=== PATIENT | female | born 1970 | race Caucasian/White ===

== ENCOUNTER 2018-11-15 10:01 | Emergency (ER) | payer BC, OTHER ==
[~2018-11-15] VITALS: Ht 160 cm; Wt 98.4 kg
--- OUTSIDE RECORDS SUMMARY | 2018-11-15 10:03 | XMS REPORT | Clinical Summary ---
Author Author [facility] Address Unknown Phone Unavailable Care Team Providers Care Cushion Worker Name Role Phone Asked, No Pcp PCP Unavailable Allergies Comments Active Allergy Reactions Severity Noted Date No Known Drug Allergies 06/26/2016 Medications End Date Status Medication Sig Dispensed Refills Start Date Active buPROPion (WELLBUTRIN) 1 TABLET 0 100 MG tablet every 8 hours 0 Active cetirizine-pseudoepHEDrin 1 TABLET 0 e (ZyrTEC-D) 5-120 mg per TWICE DAILY 0 12 hr tablet NEEDED Active citalopram (CeleXA) 20 MG 1 TABLET 0 tablet DAILY 0 Active esomeprazole (NexIUM) 40 1 capsule 0 MG capsule every 12 0 hours Active phentermine (ADIPEX-P) 1 CAPSULE 0 37.5 MG capsule EVERY MORNING 0 Active phentermine (ADIPEX-P) 1 TABLET 0 37.5 mg tablet EVERY MORNING 0 Active traMADol (ULTRAM) 50 mg 0 tablet 6 Active Problems Problem Noted Date Foot pain, bilateral 06/26/2016 Family History Medical History Relation Name Comments Hypertension Father Relation Name Status Comments Father Social History Date Tobacco Use Types Packs/Day Years Used Former Smoker Comments: 1 PACK PER WEEK Sex Assigned at Date Recorded Not on file Industry Job Start Date Occupation Not on file Not on file Not on file Travel End Travel History Travel Start No recent travel history available. Last Filed Vital Signs Not on file Plan of Treatment Health Maintenance Due Date Last Done Comments CERVICAL CANCER SCREENING 1993 INFLUENZA VACCINE 06/25/2018 Results Not on fileafter 11/14/2017 Insurance Payer Benefit Subscriber ID Type Phone Address Plan / Group BCBS BCBS xxxxxxxxxxxxxxx PPO CHOICE PPO/ANDREA MESSINA PPO Advance Directives Patient has advance care planning documents on file. For more information, fiorella e contact: Santy Floyd [address] [place] [address]
[2018-11-15 10:51] LABS: BASOPHILS % 0.4 % (0.0-1.0); EOSINOPHILS # (AUTO) 0.4 (0.0-0.4); EOSINOPHILS % 4.5 % (0.0-6.0); HEMATOCRIT 43.2 % (34.2-44.1); HEMOGLOBIN 14.4 g/dL (12.0-16.0); LYMPHOCYTES # (AUTO) 1.3 (1.0-3.2); LYMPHOCYTES % 16.1 % (18.0-39.1); MEAN CORPUSCULAR HEMOGLOBIN 30.8 pg (28-32); MEAN CORPUSCULAR HGB CONC 33.3 g/dL (31-35); MEAN CORPUSCULAR VOLUME 92.3 fL (81-99); MONOCYTES # (AUTO) 0.4 (0.2-0.8); NEUTROPHILS % 72.9 % (38.7-80.0); PLATELET COUNT 299 x10e3/uL (140-360); RED BLOOD COUNT 4.68 x10e6/uL (3.6-5.1); RED CELL DISTRIBUTION WIDTH 13.1 % (11.7-14.4)
[2018-11-15] MEDS ORDERED: FAMOTIDINE 20 MG TAB PO ONE (11:00)
[2018-11-15] MEDS ORDERED: LIDOCAINE HCL 1% LOCAL INJ 20 ML VIAL INJ ONE (11:00)
[2018-11-15] MEDS ORDERED: HYDROCODONE/APAP 10MG-325MG TAB PO ONE (11:00)
[2018-11-15 11:13] LABS: ALANINE AMINOTRANSFERASE 147 IU/L (0-55); ALBUMIN 3.8 g/dL (3.5-5.0); ALBUMIN/GLOBULIN RATIO 1.2 (0.8-2.0); ALKALINE PHOSPHATASE 127 IU/L (40-150); ANION GAP 15.1 mmol/L (8-16); BLOOD UREA NITROGEN 10 mg/dL (7-26); BUN/CREATININE RATIO 11 (6-25); CALCIUM 9.2 mg/dL (8.4-10.2); CARBON DIOXIDE 24 mmol/L (22-29); CHLORIDE 105 mmol/L (98-107); EST GLOMERULAR FILTRATION RATE > 60 ML/MIN (60-); GLUCOSE 99 mg/dL (74-118); POTASSIUM 4.1 mmol/L (3.5-5.1); SODIUM 140 mmol/L (136-145)
[2018-11-15] MEDS ORDERED: DIPHENHYDRAMINE HCL 25 MG CAP PO ONE (11:30)
--- NOTE | 2018-11-15 11:56 | Diagnostic Imaging Report ---
FOOT LEFT COMPLETE - 3 views HISTORY: Pain COMPARISON: None available. FINDINGS: Bones: No acute displaced fracture. Osseous alignment is within normal limits. Joints: The joint spaces are well-maintained. Soft tissues: The soft tissues appear unremarkable. Specifically, no soft tissue gas visualized. IMPRESSION: No acute radiographic abnormality. Signed by: Dr. Vazquez Solo MD on 11/15/2018 11:52 AM
== END 2018-11-15 12:21 | disposition home or self-care (01) ==
LOC: ER 10:01
DX: L02.612 Cutaneous abscess of left foot (principal); Z91.013 Allergy to seafood; F17.210 Nicotine dependence, cigarettes, uncomplicated; S90.822A Blister (nonthermal), left foot, initial encounter; R21 Rash and other nonspecific skin eruption; T36.8X5A Adverse effect of other systemic antibiotics, initial encounter; T37.0X5A Adverse effect of sulfonamides, initial encounter
CPT/HCPCS: 10060; 36415; 73630; 80053; 85025; 87071; 87205; 99284; J2001